=== PATIENT | female | born 1940 | race Caucasian/White ===

== ENCOUNTER 2017-07-01 12:55 | Emergency (ER) | payer MEDICARE, OTHER ==
[~2017-07-01] VITALS: Ht 149.9 cm; Wt 77.1 kg
[~2017-07-01 12:55] MED LIST: ARICEPT10 M1 PO; ASPIRIN325; CENTRUM SILVER1 EAC4 PO; CEPHALEXIN 500500 M3 PO; FISH OIL 1,001000 M2 PO; IBUPROFEN 400400 M2 PO; LEVOTHYROXINE 0.1 MG PO; REQUIP 0.25 M0.25 M1 PO; VENLAFAXIN75 MG/1 T2 PO; VITAMIN B-1250 MC2 PO; VITAMIN D1000 UNI1; ZANTAC 150MG T150 MG
[2017-07-01] MEDS ORDERED: SEA-OMEGA 30 C1 EACH PO ×2 (13:38→13:39)
[2017-07-01] MEDS ORDERED: ALDACTONE25 MG PO (13:39)
[2017-07-01] MEDS ORDERED: LASIX 20 MG TAB20 MG PO (13:39)
[2017-07-01] MEDS ORDERED: VENLAFAXINE H37.5 MG PO (13:39)
[2017-07-01] MEDS ORDERED: MAPAP ARTHRITI650 MG PO (13:40)
[2017-07-01] MEDS ORDERED: WELCHOL 625 MG625 M1 PO (13:40)
[2017-07-01] MEDS ORDERED: SYNTHROID88 MCG PO (13:40)
[2017-07-01] MEDS ORDERED: MOBIC7.5 MG PO (13:40)
[2017-07-01] MEDS ORDERED: ARICEPT 5 MG TAB5 MG PO (13:41)
[2017-07-01] MEDS ORDERED: VITAMIN D1000 UNI1 PO (13:41)
[2017-07-01] MEDS ORDERED: ASPIRIN325 PO (13:41)
[2017-07-01] MEDS ORDERED: TUMS PO (13:42)
[2017-07-01] MEDS ORDERED: FIBER LAXATIVE625 MG PO (13:42)
[2017-07-01] MEDS ORDERED: CLARITIN10 MG PO (13:42)
[2017-07-01 16:52] VITALS: BP 111/67
== END 2017-07-01 16:54 | disposition home or self-care (01) ==
LOC: M.ERS 12:55
DX: S30.0XXA Contusion of lower back and pelvis, initial encounter (principal); S80.02XA Contusion of left knee, initial encounter; S50.02XA Contusion of left elbow, initial encounter; Z96.642 Presence of left artificial hip joint; Z88.6 Allergy status to analgesic agent; W01.0XXA Fall on same level from slipping, tripping and stumbling without subsequent striking against object, initial encounter; Y93.89 Activity, other specified; Y92.89 Other specified places as the place of occurrence of the external cause; Y99.8 Other external cause status

== ENCOUNTER 2019-01-23 07:09 | Emergency (ER) | payer MEDICARE, OTHER ==
[~2019-01-23] VITALS: Ht 152.4 cm; Wt 65.8 kg
[~2019-01-23 07:09] MED LIST changes: +ALDACTONE25 MG PO; +ARICEPT 5 MG TAB5 MG PO; +ASPIRIN325 PO; +CLARITIN10 MG PO; +FIBER LAXATIVE625 MG PO; +LASIX 20 MG TAB20 MG PO; +MAPAP ARTHRITI650 MG PO; +MOBIC7.5 MG PO; +SEA-OMEGA 30 C1 EACH PO; +SYNTHROID88 MCG PO; +TUMS PO; +VENLAFAXINE H37.5 MG PO; +VITAMIN D1000 UNI1 PO; +WELCHOL 625 MG625 M1 PO
[2019-01-23] MEDS ORDERED: ASA81BEC PO (07:29)
[2019-01-23] MEDS ORDERED: LEVO-T75 MCG PO (07:30)
[2019-01-23] MEDS ORDERED: REQUIP XL2 MG PO (07:30)
[2019-01-23] MEDS ORDERED: SENEXON-S 50-81 EACH PO (07:30)
[2019-01-23] MEDS ORDERED: FUROSEMIDE 20 M20 MG PO (07:30)
[2019-01-23] MEDS ORDERED: TRAZODONE 150150 M1 PO (07:31)
[2019-01-23] MEDS ORDERED: VENLAFAXINE HCL75 M2 PO (07:31)
[2019-01-23 08:00] LABS: ABSOLUTE LYMPHOCYTES 0.8 thou/uL (0.8-5.3); ABSOLUTE MONOCYTES 0.6 thou/uL (0.0-1.2); ABSOLUTE NEUTROPHILS 3.4 thou/uL (1.6-8.1); BASOPHILS 0.7 %; EOSINOPHILS 0.9 %; HEMATOCRIT 33.8 % (37.0-47.0); HEMOGLOBIN 11.6 gm/dL (12.0-15.0); LYMPHOCYTES 15.6 %; MCH 31.8 pg (26.0-34.0); MCHC 34.3 g/dL (28.0-37.0); MCV 92.6 fL (80.0-100.0); MONOCYTES 11.5 %; NUCLEATED RBCS 0 /100WBC; PLATELET COUNT* 208 thou/uL (150-400); POLYS 71.3 %; RBC 3.65 mil/uL (4.20-5.00); WBC 4.8 thou/uL (4.0-11.0)
[2019-01-23 08:01] LABS: INFLUENZA A ANTIGEN Negative (Negative); INFLUENZA B ANTIGEN Negative (Negative)
[2019-01-23 08:07] LABS: CALCIUM 8.6 mg/dL (8.5-10.1); CREATININE 0.8 mg/dL (0.6-1.3); POTASSIUM 3.6 mmol/L (3.5-5.1)
[2019-01-23 08:12] LABS: ALBUMIN 3.4 g/dL (3.4-5.0); TOTAL BILIRUBIN 0.4 mg/dL (<0.1-1.0); TOTAL PROTEIN 6.5 g/dL (6.4-8.2)
[2019-01-23 09:22] LABS: URINE BILIRUBIN NEGATIVE (Negative); URINE BLOOD TRACE (Negative); URINE CLARITY CLEAR; URINE COLOR YELLOW; URINE GLUCOSE-RANDOM NEGATIVE (Negative); URINE KETONES NEGATIVE (Negative); URINE LEUKOCYTES-REFLEX NEGATIVE (Negative); URINE NITRITE-REFLEX NEGATIVE (Negative); URINE PROTEIN NEGATIVE (Negative); URINE UROBILINOGEN 0.2 E.U./dl (0.2-1.0)
[2019-01-23] MEDS ORDERED: VENTOLIN HFA 1818 GM INH (10:06)
[2019-01-23 10:37] VITALS: BP 113/55
--- NOTE | 2019-01-24 09:54 | CON ---
[address] [address] CONSULTATION Name: FRANCOСЕРГЕЙ Room: [facility]#: [id number] Admission: 01/23/19 Attend Phys: Discharge: 01/23/19 Date of : 38 Report #: [id number] THIS REPORT FOR: //name// CC: [facility] physician/PCP Jack Bae MD DATE OF SERVICE: 01/23/2019 CARDIOLOGY CONSULTATION HISTORY OF PRESENT ILLNESS: The patient is a 78-year-old single white female who I was asked to see in the Emergency Room after she was noted to be bradycardic. The history is obtained from the patient and her son, who is present. There are not a lot of old records available. The patient actually came here to the Emergency Room at [facility] in 06/2017, complaining of a fall. She was evaluated in the Emergency Room and sent home. No fractures were noted. Of note, when she visited the Emergency Room, her heart rate was normal. The patient currently lives in assisted living. She is not very active at this time. She does have occasional lightheaded spells. Recently, she has had difficulty sleeping at night. She has not been feeling very well and has a hard time getting back to sleep. She denies a history of heart problems. She has no history of heart murmur, chest pain, myocardial infarction. She does occasionally get short of breath. She has had no palpitations. She does feel occasional lightheadedness, but has had no recent syncope. PAST MEDICAL HISTORY: She had shoulder surgery, hip surgery, hysterectomy, memory loss. MEDICATIONS: At assisted living consist of spironolactone, Mobic, Aricept, aspirin, Lasix, Synthroid, Requip, trazodone. ALLERGIES: She has intolerance to Ambien and Darvon. FAMILY HISTORY: Negative for heart disease. SOCIAL HISTORY: She is , lives in assisted living. No smoking or alcohol abuse. REVIEW OF SYSTEMS: She has had no history of stroke, asthma, peptic ulcer disease, liver disease, kidney disease, cancer, chronic skin condition. PHYSICAL EXAMINATION: GENERAL: Revealed an elderly female lying in bed. She appeared in no acute distress. VITAL SIGNS: She had a blood pressure of 120/70, pulse is 50, [place] [address] CONSULTATION Name: СЕРГЕЙ FRANCO Room: [facility]#: [id number] Admission: 01/23/19 Attend Phys: Discharge: 01/23/19 Date of : 38 Report #: [id number] HEENT: She was anicteric. Conjunctivae are pink. Mucous membranes moist. NECK: Veins are nondistended. Right carotid bruit was heard. CHEST: Clear to auscultation. CARDIOVASCULAR: Regular bradycardia, no significant murmur. ABDOMEN: Soft. EXTREMITIES: Had no edema. Dorsalis pedis pulse 1+ bilaterally. SKIN: Cool and dry. NEUROLOGIC: Nonfocal. RADIOLOGICAL DATA: ECG shows a sinus bradycardia, incomplete right bundle-branch block, left ventricular hypertrophy. Her workup in the Emergency Room today, she actually had an echocardiogram done back in 2017 showed an ejection fraction 60%, left atrial enlargement, mild mitral regurgitation, mild aortic regurgitation. Her x-rays, CT scan of the head performed a year ago, when she fell here in the Emergency Room, showed no acute abnormality. Chest x-ray done this morning in the Emergency Room showed no acute abnormality. LABORATORY DATA: Today, sodium 141, potassium 3.6, creatinine 0.8. Troponin 0.06. White blood cell count 4.8, hematocrit 33.8. Urinalysis is negative for protein, negative for leukocytes. IMPRESSION AND RECOMMENDATIONS: 1. Sick sinus syndrome. The patient with a significant bradycardia. If symptomatic, I would consider a pacemaker. 2. Memory loss. <ELECTRONICALLY SIGNED> By: Denis Guaman MD, FACC 01/24/19 [id number] luis Guaman MD, FACC /nt
--- NOTE | 2019-01-24 10:18 | EKG ---
[place] [address] ELECTROCARDIOGRAM REPORT Name: СЕРГЕЙ FRANCO Room: [facility]#: [id number] Admission: 01/23/19 Attend Phys: Discharge: 01/23/19 Date of : 38 Report #: [id number] THIS REPORT FOR: //name// [facility] ED Test Date: 2019-01-23 Test Time: 07:56:21 Pat Name: СЕРГЕЙ KINGSTONHENS Department: Room: Gender: F Purchasing Administrator: ALEIDA : 1940 Requested By: Jack Calzada Order Number: [id number] MD: Denis Guaman Measurements Intervals [place] Rate: 49 P: 35 [place]: 177 QRS: -19 QRSD: 248 T: -27 QT: 525 QTc: 475 Interpretive Statements Sinus bradycardia LVH with secondary repolarization abnormality Compared to ECG 03/14/2016 08:44:35 Left ventricular hypertrophy now present rate has slowed Electronically Signed On 01-24-2019 10:17:54 MANAGER OF RADIOLOGY by Denis Guaman [email or web address] <ELECTRONICALLY SIGNED> By: Denis Guaman MD, [facility] 01/24/19 [phone] Denis Guaman MD, [facility] /EPI
== END 2019-01-23 10:38 | disposition home or self-care (01) ==
LOC: M.ERS 07:09
PROVIDERS: Emergency Medicine Emergency Medical Services
DX: J40 Bronchitis, not specified as acute or chronic (principal); R42 Dizziness and giddiness; I49.5 Sick sinus syndrome; J02.9 Acute pharyngitis, unspecified; R07.9 Chest pain, unspecified; Z88.8 Allergy status to other drugs, medicaments and biological substances; Z79.82 Long term (current) use of aspirin; Z90.710 Acquired absence of both cervix and uterus; Z96.642 Presence of left artificial hip joint

== ENCOUNTER 2019-04-03 19:05 | Emergency (ER) | payer MEDICARE, OTHER ==
[~2019-04-03] VITALS: Ht 149.9 cm; Wt 74.8 kg
[~2019-04-03 19:05] MED LIST changes: +ASA81BEC PO; +FUROSEMIDE 20 M20 MG PO; +LEVO-T75 MCG PO; +REQUIP XL2 MG PO; +SENEXON-S 50-81 EACH PO; +TRAZODONE 150150 M1 PO; +VENLAFAXINE HCL75 M2 PO; +VENTOLIN HFA 1818 GM INH
[2019-04-03] MEDS ORDERED: NORCO 5-325 TA1 EAC1 PO (19:36)
[2019-04-03] MEDS ORDERED: ZANAFLEX2 M1 PO (19:37)
[2019-04-03] MEDS ORDERED: MELATONIN10 M3 PO (19:37)
[2019-04-03] MEDS ORDERED: VITAMIN B-121000 MC2 PO (19:38)
[2019-04-03] MEDS ORDERED: VITAMIN D31250 MC1 PO (19:39)
[2019-04-03 20:13] LABS: ABSOLUTE BASOPHILS 0.1 thou/uL (0.0-0.2); ABSOLUTE EOSINOPHILS 0.1 thou/uL (0.0-0.7); ABSOLUTE LYMPHOCYTES 1.4 thou/uL (0.8-5.3); ABSOLUTE MONOCYTES 0.6 thou/uL (0.0-1.2); BASOPHILS 1.1 %; HEMOGLOBIN 11.4 gm/dL (12.0-15.0); MCH 32.7 pg (26.0-34.0); MCHC 34.7 g/dL (28.0-37.0); MCV 94.3 fL (80.0-100.0); MONOCYTES 11.2 %; MPV 8.4 fl. (7.2-11.1); NUCLEATED RBCS 0 /100WBC; PLATELET COUNT* 234 thou/uL (150-400); POLYS 57.7 %; RDW-CV 13.1 % (10.5-14.5); WBC 5.1 thou/uL (4.0-11.0)
[2019-04-03 20:21] LABS: CALCIUM 8.4 mg/dL (8.5-10.1); CREATININE 0.7 mg/dL (0.6-1.3); POTASSIUM 4.1 mmol/L (3.5-5.1)
[2019-04-03 20:26] LABS: ALBUMIN 3.5 g/dL (3.4-5.0); TOTAL BILIRUBIN 0.3 mg/dL (<0.1-1.0); TOTAL PROTEIN 6.7 g/dL (6.4-8.2)
[2019-04-03 21:18] LABS: URINE BILIRUBIN NEGATIVE (Negative); URINE BLOOD NEGATIVE (Negative); URINE COLOR YELLOW; URINE GLUCOSE-RANDOM NEGATIVE (Negative); URINE KETONES NEGATIVE (Negative); URINE LEUKOCYTES-REFLEX 1+ (Negative); URINE NITRITE-REFLEX NEGATIVE (Negative); URINE PROTEIN NEGATIVE (Negative); URINE SPECIFIC GRAVITY 1.015 (1.005-1.030); URINE UROBILINOGEN 0.2 E.U./dl (0.2-1.0)
[2019-04-03 21:19] LABS: URINE CLARITY HAZY
[2019-04-03 21:29] LABS: SQUAMOUS >10 Many /LPF (0-3)
[2019-04-03 21:30] LABS: BACTERIA-REFLEX None Seen /HPF (None Seen); CASTS None Seen /LPF (None Seen); CRYSTALS None Seen /LPF (None Seen); MUCUS 0-3 Light strn/LPF (None Seen); URINE RBC None Seen /HPF (0-2); URINE WBC-REFLEX 0-5 Rare /HPF (0-5)
[2019-04-03] MEDS ORDERED: HYDROCODON-ACE1 EAC8 PO (21:55)
[2019-04-03] MEDS ORDERED: LORCET 5-325 M1 EACH PO (22:01)
[2019-04-03 22:19] VITALS: BP 121/52
--- NOTE | 2019-04-08 13:55 | EKG ---
[place] [address] ELECTROCARDIOGRAM REPORT Name: СЕРГЕЙ FRANCO Room: [facility]#: [id number] Admission: 04/03/19 Attend Phys: Discharge: 04/03/19 Date of : 38 Date of Service: 04/03/192053 Report #: [id number] THIS REPORT FOR: cc: Leonard Bae MD, Todd A. MD Blick,Denis Regan MD [facility] ~ THIS REPORT FOR: //name// [facility] ED Test Date: 2019-04-03 Test Time: 20:54:39 Pat Name: СЕРГЕЙ FRANCO Department: Room: Gender: F Picture Engraver: [place] : 1940 Requested By: Elisabeth Hatch Order Number: [id number] MD: Denis Guaman Measurements Intervals [place] Rate: 52 P: 38 [place]: 180 QRS: -21 QRSD: 108 T: -30 QT: 503 QTc: 468 Interpretive Statements Sinus bradycardia Low voltage, precordial leads RSR' in V1 or V2, probably normal variant LVH with secondary repolarization abnormality Compared to ECG 01/23/2019 07:56:21 Low QRS voltage now present Electronically Signed On 04-04-2019 13:30:57 MAMMOGRAPHER by Denis Guaman [email or web address] <ELECTRONICALLY SIGNED> By: Denis Guaman MD, [facility] 04/04/19 1330 53 53 Denis Guaman MD, [facility] /EPI
== END 2019-04-03 22:19 | disposition home or self-care (01) ==
LOC: M.ERS 19:05
PROVIDERS: Emergency Medicine
DX: S22.030A Wedge compression fracture of third thoracic vertebra, initial encounter for closed fracture (principal); S22.040A Wedge compression fracture of fourth thoracic vertebra, initial encounter for closed fracture; S20.212A Contusion of left front wall of thorax, initial encounter; E03.9 Hypothyroidism, unspecified; Z96.642 Presence of left artificial hip joint; Z90.710 Acquired absence of both cervix and uterus; Z88.8 Allergy status to other drugs, medicaments and biological substances; W18.39XA Other fall on same level, initial encounter; Y93.89 Activity, other specified; Y92.89 Other specified places as the place of occurrence of the external cause; Y99.8 Other external cause status

== ENCOUNTER 2020-03-28 18:58 | Emergency (ER) | payer MEDICARE, OTHER ==
[~2020-03-28] VITALS: Ht 149.9 cm; Wt 77.6 kg
[~2020-03-28 18:58] MED LIST changes: +HYDROCODON-ACE1 EAC8 PO; +LORCET 5-325 M1 EACH PO; +MELATONIN10 M3 PO; +NORCO 5-325 TA1 EAC1 PO; +VITAMIN B-121000 MC2 PO; +VITAMIN D31250 MC1 PO; +ZANAFLEX2 M1 PO
[2020-03-28] MEDS ORDERED: ONDANSETRON ODT4 MG PO (19:22)
[2020-03-28] MEDS ORDERED: GAS RELIEF80 MG PO (19:22)
[2020-03-28] MEDS ORDERED: BIOFREEZE118 ML TOP (19:23)
[2020-03-28] MEDS ORDERED: NYSTATIN15 G3 TOP (19:24)
[2020-03-28] MEDS ORDERED: HYDROCORTISONE30 GM TOP (19:24)
[2020-03-28 19:40] LABS: ABSOLUTE BASOPHILS 0.1 thou/uL (0.0-0.2); ABSOLUTE EOSINOPHILS 0.2 thou/uL (0.0-0.7); ABSOLUTE LYMPHOCYTES 1.3 thou/uL (0.8-5.3); ABSOLUTE MONOCYTES 0.6 thou/uL (0.0-1.2); ABSOLUTE NEUTROPHILS 4.5 thou/uL (1.6-8.1); BASOPHILS 1.1 %; EOSINOPHILS 3.2 %; HEMATOCRIT 35.7 % (37.0-47.0); HEMOGLOBIN 11.8 gm/dL (12.0-15.0); LYMPHOCYTES 19.3 %; MCH 31.4 pg (26.0-34.0); MCHC 33.1 g/dL (28.0-37.0); MCV 94.8 fL (80.0-100.0); MONOCYTES 8.5 %; NUCLEATED RBCS 0 /100WBC; PLATELET COUNT* 292 thou/uL (150-400); POLYS 67.9 %; RBC 3.77 mil/uL (4.20-5.00); RDW-CV 12.4 % (10.5-14.5); WBC 6.7 thou/uL (4.0-11.0)
[2020-03-28 19:47] LABS: CALCIUM 8.8 mg/dL (8.5-10.1); POTASSIUM 3.7 mmol/L (3.5-5.1)
[2020-03-28 19:51] LABS: ALBUMIN 3.5 g/dL (3.4-5.0); TOTAL BILIRUBIN 0.2 mg/dL (<0.1-1.0); TOTAL PROTEIN 6.9 g/dL (6.4-8.2)
[2020-03-28 20:33] LABS: URINE BILIRUBIN NEGATIVE (Negative); URINE BLOOD NEGATIVE (Negative); URINE CLARITY CLEAR; URINE COLOR YELLOW; URINE GLUCOSE-RANDOM NEGATIVE (Negative); URINE KETONES NEGATIVE (Negative); URINE LEUKOCYTES-REFLEX TRACE (Negative); URINE NITRITE-REFLEX NEGATIVE (Negative); URINE PROTEIN NEGATIVE (Negative); URINE SPECIFIC GRAVITY >= 1.030 (1.005-1.030); URINE UROBILINOGEN 0.2 E.U./dl (0.2-1.0)
[2020-03-28 20:42] LABS: HYALINE CASTS 4-10 Moderate /LPF (None Seen); MUCUS 4-6 Moderate strn/LPF (None Seen); SQUAMOUS >10 Many /LPF (0-3)
[2020-03-28 20:43] LABS: BACTERIA-REFLEX 1-9 Few /HPF (None Seen); CRYSTALS None Seen /LPF (None Seen); URINE RBC 0-2 Rare /HPF (0-2); URINE WBC-REFLEX 0-5 Rare /HPF (0-5)
[2020-03-28 23:19] VITALS: BP 135/65
--- NOTE | 2020-03-29 09:51 | EKG ---
[place] [address] ELECTROCARDIOGRAM REPORT Name: СЕРГЕЙ FRANCO Room: [facility]#: [id number] Admission: 03/28/20 Attend Phys: Discharge: 03/28/20 Date of : 38 Date of Service: 03/28/201938 Report #: [id number] THIS REPORT FOR: //name// [facility] ED Test Date: 2020-03-28 Test Time: 19:39:34 Pat Name: СЕРГЕЙ FRANCO Department: Room: Gender: F Flatbed Stitcher: LANE : 1940 Requested By: Jack Calzada Order Number: [id number] MD: Reid Lennon Measurements Intervals [place] Rate: 63 P: 25 [place]: 168 QRS: -26 QRSD: 107 T: 226 QT: 504 QTc: 517 Interpretive Statements Sinus rhythm LVH with secondary repolarization abnormality Delayed R wave progression Prolonged QT interval Compared to ECG 04/03/2019 20:54:39 Prolonged QT interval now present Sinus bradycardia no longer present Electronically Signed On 03-29-2020 9:51:32 MARQUETRY WORKER by Reid Lennon [email or web address] <ELECTRONICALLY SIGNED> By: Reid Lennon MD, FACC 03/29/20950 38 38 Reid Lennon MD, FAC /EPI
== END 2020-03-28 23:20 | disposition still patient (30) ==
LOC: M.ERS 18:58
PROVIDERS: Emergency Medicine Emergency Medical Services
DX: K59.00 Constipation, unspecified (principal); Z88.8 Allergy status to other drugs, medicaments and biological substances; Z96.642 Presence of left artificial hip joint